=== PATIENT | female | born 1985 | race American Indian/Alaskan Native ===

== ENCOUNTER 2016-08-11 19:31 | Emergency (ER) | payer BC, MEDICAID, OTHER ==
--- NOTE | 2016-08-12 04:39 | OBHP ---
Datetime: 08/11/2016 20:23 IP Adm Impression: Term, intrauterine ; No Active Labor IP Admit Plan: Discharge home Admit Comment, IP Provider: 31 y.o. P3043, LMP unsure, JOY , EGA 36w 6d c/o worsening CTX: o nset several days ago; stronger 08/11/16 at 1600 hours, pain scale 8/10... "feels like contractions". ( +) AFM; denies LOF, VB. provider [facility]; denies issues P Ob: x 3: 2002, female, 7lb 12 oz, [facility] ([place]); 2007, male, 7lb 11oz, [facility]; 2012, male, 7lb [address], [facility] - no complications. VTOP x 3-4. all first trimester; no complicatoins. 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 Denies H/O STI or abnormal Pap PMH: denies PSH: D_C x 3-4 Allergies: penicillin - rash Soc Hx: denies tobacco, illicit drug or EtOH use. With FOB x 8 years. 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 Fam Hx: Mother alive 73 y.o - HTN, DM. Father alive 63 y.o - no med issues. No known fam h/o canc er. P.E.: as above. Mildy obese in NAD. Awake, alert, oriented to time, person and place. Pleasant and cooperative. FOB present Assessment: 31 yo P3043, 36w 6d - not in active labor. Category 1 tracing. Clinically stable. Plan: 1) Discharge home 2) Keep all/next scheduled appointments 3) Reviewed S/S labor Pelvic Type - PN: Adequate Extremities - PN: Normal Abdomen - PN: Normal Back - PN: Normal Breast - PN: Not Done Lungs - PN: Normal Heart - PN: Normal Thyroid - PN: Not Done Neurologic - PN: Normal HEENT - PN: Normal General - PN: Normal Presentation-Admit: Vertex FHR - Baseline A Provider: 145 Contraction Comments Provider: infrequent Comments, ACOG Physical Exam: Skin: warm, dry, intact Abdomen: Soft. Gravid. Fundal height 37cm All other systems reviewed and are negative Gestation - Est Wks by US: 36w 6d EGA AdmitDate IP: 36.6 IP Chief Complaint: Uterine contractions NICHD Variability Prov Fetus A: Moderate 6-25bpm NICHD Accel Fetus A IP Provider: 15X15 FHR Category Provider Fetus A: Category I NICHD Decel Fetus A IP Provider: None Dilatation, Provider: 1-2 Effacement, Provider: 30 Station, Provider: -3 Genitourinary Exam: Normal DTRs - PN: Not Done
== END 2016-08-11 20:20 | disposition home or self-care (01) ==
LOC: C.EROB 19:31
DX: O47.03 False labor before 37 completed weeks of gestation, third trimester (principal); Z3A.36 36 weeks gestation of pregnancy

== ENCOUNTER 2016-08-18 09:12 | Inpatient (IN) | payer BC, OTHER ==
[2016-08-18 09:27] VITALS: BMI 48.4
[2016-08-18] MEDS ORDERED: Lactated Ringer's 1,000 ML IV SCH (10:00)
[2016-08-18] MEDS ORDERED: Dextrose 5%/Lactated Ringer's 1,000 ML IV SCH (10:00)
[2016-08-18 11:08] LABS: SQUAMOUS EPITHIAL 3 /hpf (0-5); URINE BACTERIA RARE (<OCC); URINE BILIRUBIN NEGATIVE (NEGATIVE); URINE BLOOD NEGATIVE (NEGATIVE); URINE CLARITY Clear (Clear); URINE COLOR Yellow (YELLOW); URINE GLUCOSE (UA) 2+ mg/dL (Normal); URINE LEUKOCYTE ESTERASE NEG Leu/uL (Negative); URINE NITRATE NEGATIVE (NEGATIVE); URINE PROTEIN NEGATIVE (NEGATIVE); URINE UROBILINOGEN NORMAL mg/dL (0.2-1.0)
[2016-08-18 11:11] LABS: BASO % 0.2 % (0.0-2.0); EOS # 0.1 K/uL (0.0-0.7); EOS % 0.7 % (0.0-4.0); HEMOGLOBIN 12.8 g/dL (11.0-16.0); LYMPH % 13.2 % (20.0-40.0); MEAN CELL VOLUME 90.7 fL (81.0-99.0); MEAN CORPUSCULAR HEMOGLOBIN 29.9 pg (27.0-31.0); MEAN CORPUSCULAR HGB CONC 32.9 g/dL (33.0-37.0); MEAN PLATELET VOLUME 7.8 fL (7.2-11.7); MONO # 0.7 K/uL (0.0-0.8); MONO % 8.6 % (0.0-10.0); NEUT # 6.1 K/uL (1.8-7.0); NEUT % 77.3 % (50.0-75.0); RBC 4.27 Mil/uL (3.80-5.20); RED CELL DISTRIBUTION WIDTH 13.7 % (11.5-14.5); WHITE BLOOD COUNT 7.9 K/uL (4.8-10.8)
[2016-08-18 11:19] LABS: ALBUMIN 2.9 g/dL (3.5-5.0)
[2016-08-18 11:21] LABS: GFR AFRICAN-AMERICAN > 60; GFR NON-AFRICAN AMERICAN > 60
[2016-08-18 11:22] LABS: ALB/GLOB RATIO 0.9 (1.0-2.1); ALT/SGPT 39 U/L (9-52); AST/SGOT 31 U/L (14-36); BLOOD UREA NITROGEN 4 mg/dL (7-17); CALCIUM 9.1 mg/dl (8.6-10.4)
[2016-08-18] MEDS ORDERED: Bupivacaine 0.125%/FentaNYL 200 ML EPI ONE (11:44)
[2016-08-18] MEDS ORDERED: Lidocaine 2% MPF (5 ml) Inj ONE (12:54)
[2016-08-18] MEDS ORDERED: Oxycodone/Acetaminophen 5/325 mg Tab PO PRN (14:23)
--- NOTE | 2016-08-18 14:38 | OBDS ---
DELIVERY PERSONNEL Delivery Doctor: Zak Marsh MD Scrub Nurse: Felicity Osorio OBT Gasket Former: Yuni Hansen RN Anesthesiologist: Zak Major MD MATERNAL INFORMATION Delivery Anesthesia: Epidural Medications in Delivery: pitocin Estimated Blood Loss (ml): 200 Maternal Complications: None RN Comments: to a live baby girl to mother's abdomen, 9:9, stable. Skin to skin initiated , encouraged. Provider Comments: Uncomplicated vaginal delivery, live female infant, RADHA position, tight nuchal co rd x 1, over intact perineum; Apgars 9/9; weight 7lb 6oz. Infant placed on mother's abdomen. Sponta neous delivery of placenta - grossly intact; 3 vessel cord. Cervix, vagina, perineum inspected - no lacerations. Infant and mother bonding; both in stable condition LABOR SUMMARY EDC: 09/02/2016 00:00 No. Babies in Womb: 1 Attempted: No Labor Anesthesia: Epidural LABOR INFORMATION Onset of Labor: 08/18/2016 05:00 Complete Dilatation: 08/18/2016 13:03 Cervical Ripening Agents: Cervidil Group B Beta Strep: Done, Result Unknown Antibiotics # of Doses: 0 Steroids Given: None Reason Steroids Not Administered: Not Applicable MEMBRANES Membranes Rupture Method: Spontaneous Rupture of Membranes: 08/18/2016 12:03 Length of Rupture (hrs): 1.07 Amniotic Fluid Color: Clear Amniotic Fluid Amount: Moderate Amniotic Fluid Odor: Normal STAGES OF LABOR Stage 1 hrs: 8 Stage 1 min: 3 Stage 2 hrs: 0 Stage 2 min: 4 Stage 3 hrs: 0 Stage 3 min: 6 Total Time in Labor hrs: 8 Total Time in Labor min: 13 VAGINAL DELIVERY Episiotomy: None Laceration Extension: N/A Laceration Type: None Laceration Repair: Not Applicable Laceration Repair Note: N/A Initial Vag Sponge Count: 10 Final Vag Sponge Count: 10 Initial Vag Sharps Count: 0 Final Vag Sharps Count: 0 Sponge Count Correct: Yes; Vaginal Sweep Performed Sharps Count Correct: Yes Count Comment: Correct BABY A INFORMATION Delivery Date/Time: 08/18/2016 13:07 Method of Delivery: Vaginal Born in Route : No : N/A Forceps: N/A Vacuum Extraction: N/A Shoulder Dystocia : No SHOULDER DYSTOCIA BABY A Infant Delivery Date/Time: 08/18/2016 13:07 PRESENTATION/POSITION BABY A Presentation: Cephalic Cephalic Presentation: Vertex Vertex Position: Left Occipital Anterior Breech Presentation: N/A PLACENTA INFORMATION BABY A Placenta Delivery Time : 08/18/2016 13:13 Placenta Method of Delivery: Spontaneous Placenta Status: Delivered SCORES BABY A Heart Rate 1 min: >100 bpm Resp Effort 1 min: Good Cry Reflex Irritability 1 min: Cough or Sneeze or Pulls Away Muscle Tone 1 min: Active Motion Color 1 min: Body [place], Extremities Blue SCORE 1 MIN: 9 Heart Rate 5 min: >100 bpm Resp Effort 5 min: Good Cry Reflex Irritability 5 min: Cough or Sneeze or Pulls Away Muscle Tone 5 min: Active Motion Color 5 min: Body [place], Extremities Blue SCORE 5 MIN: 9 INFANT INFORMATION BABY A Gestational Age at Delivery: 37.6 Gestational Status: Term Infant Outcome : Liveborn Infant Condition : Stable Infant Sex: Female IDENTIFICATION/MEDS BABY A ID Band Number: [id number] ID Band Location: Left Leg; Left Arm Sensor Applied: Yes Sensor Number: [id number] Sensor Location : Cord Clamp Vitamin K Given : Not Given Erythromycin Given: Not Given WEIGHT/LENGTH BABY A Infant Birthweight (gms): 3335 Infant Weight (lb): 7 Weight (oz): 6 Length Inches: 19.50 Length cms: 49.5 CORD INFORMATION BABY A No. Cord Vessels: 3 Nuchal Cord : Around Neck x1, Tight Nuchal Cord Other: n/a True Knot: 0 Cord Blood Taken: Yes Banking/Donate Info: n/a Infant Suction: Mouth; Nose ASSESSMENT BABY A Infant Complications: None Physical Findings at Delivery: Within Normal Limits Infant Respirations: Appears Normal Mechanic Driver/ALS Called : No Infant Care By: Krystin Transferred To: Remains with Mother
--- NOTE | 2016-08-18 15:34 | OBHP ---
Datetime: 08/18/2016 09:12 IP Adm Impression: Term, intrauterine ; Intact Membranes IP Chief Complaint Other: Back pain - intractable IP Adm Impression Other: Prolonged latent phase of labor IP Admit Plan: Admit to unit; Initiate labor protocol IP Admit Plan Other: Cervical ripening Admit Comment, IP Provider: 31 y.o. , LMP unsure, JOY 09/02/16, EGA 37w 6d, c/o stronger Ctx since 0530 hours, pain scale 8/10 to 9/10. Also, decreased movement since 08/17/16; still decre ased. Denies LOF, VB. care: [facility]; last visit 08/12/16. Issues: S/P ECHO - reason uncle ar - suboptimal visualization on anatomic survey at 19 weeks; CF carrier. ECHO 07/2016 - late; l imited; grossly normal. Abnormal GCT; normal 3hr GTT. P Ob: x 3: 2002, female, 7lb 12 oz, [facility] ([place]); 2007, male, 7lb 11oz, [facility]; 2012, male, 7lb 13 oz, [facility] - no complications. VTOP x 3-4 - all first trimester; no complications. 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 Denies H/O STI or abnormal Pap PMH: denies PSH: D_C x 3-4 Allergies: penicillin - rash Soc Hx: denies tobacco, illicit drug or EtOH use. With FOB x 8 years. 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 Fam Hx: Mother alive 73 y.o. - HTN, DM. Father alive 63 y.o. - no med issues. No known fam h/o ca ncer. P.E.: as above. Obese, in pain. Awake, alert, oriented to time, person and place. 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 Category 1 tracing. GBS (-). D/W patient cervical ripening and possible pitoci n. Also discussed epidural - hesitant at [facility]. Patient is clinically stable. Plan: 1) Admit 2) NPO 3) Admission labs 4) IVFs 5) Continuous EFM 6) Cervidil 7) Anticipate vaginal delivery Pelvic Type - PN: Adequate Extremities - PN: Normal Abdomen - PN: Normal Back - PN: Normal Breast - PN: Not Done Lungs - PN: Normal Heart - PN: Normal Thyroid - PN: Not Done Neurologic - PN: Normal HEENT - PN: Normal General - PN: Normal Weight - Estimated: 8lb Presentation-Admit: Vertex FHR - Baseline A Provider: 145 Contraction Comments Provider: irregular (Annotations: Data stored by CPN on behalf of user) Comments, ACOG Physical Exam: Skin: warm, dry, intact Abdomen: Obese. Gravid. Non tender in all quadrants All other systems reviewed and are negative. Gestation - Est Wks by US: 37w 6d IP Hx Assessment: The History has been Reviewed and is Current EGA AdmitDate IP: 37.6 Vital Signs Provider: Reviewed IP Indication for Induction: Not Applicable IP Chief Complaint: Decreased movement; Other NICHD Variability Prov Fetus A: Moderate 6-25bpm NICHD Accel Fetus A IP Provider: 15X15 FHR Category Provider Fetus A: Category I NICHD Decel Fetus A IP Provider: None Dilatation, Provider: 3-4 Effacement, Provider: 60 Station, Provider: -3 Genitourinary Exam: Normal DTRs - PN: Not Done
--- NOTE | 2016-08-18 15:40 | OBPN ---
Datetime: 08/18/2016 10:25 IP Procedures Other: Cervical placement IP Progress Plan: Continue present management; Cervical Ripening; Anesthesia consult; Anticipate Vag inal Delivery Membranes, Provider: Intact Contraction Comments Provider: irregular FHR - Baseline A Provider: 150 Gestation - Est Wks by US: 37w 6d IP Progress Note Comment: Patient reports continual back pain; not so much abdominal tightening, i.e ., contractions. Considering epidural V.E.: as above. Cervix mid - to anterior. Cervix placed in posterior vaginal vault Assessment: P3043, 37w 6d, cervical ripening. Category 1 tracing. clinically stable. Plan: 1) Anticipate vaginal delivery 2) possible epidural NICHD Accel Fetus A IP Provider: 15X15 FHR Category Provider Fetus A: Category I NICHD Variability Prov Fetus A: Moderate 6-25bpm Dilatation, Provider: 3-4 Effacement, Provider: 60 Station, Provider: -3 NICHD Decel Fetus A IP Provider: None Datetime: 08/18/2016 09:12 Weight - Estimated: 8lb Presentation-Admit: Vertex Vital Signs Provider: Reviewed
[2016-08-18 17:48] LABS: HEMOGLOBIN 12.3 g/dL (11.0-16.0); MEAN CELL VOLUME 91.2 fL (81.0-99.0); MEAN CORPUSCULAR HEMOGLOBIN 29.8 pg (27.0-31.0); MEAN CORPUSCULAR HGB CONC 32.7 g/dL (33.0-37.0); MEAN PLATELET VOLUME 7.8 fL (7.2-11.7); RBC 4.14 Mil/uL (3.80-5.20); RED CELL DISTRIBUTION WIDTH 13.5 % (11.5-14.5); WHITE BLOOD COUNT 16.8 K/uL (4.8-10.8)
[2016-08-18] MEDS ORDERED: Gentamicin 80 mg/2mL Inj. IVPB SCH (18:45)
[2016-08-18] MEDS ORDERED: Clindamycin 150 mg/mL Inj IVPB SCH (18:45)
--- NOTE | 2016-08-18 18:50 | OBPN ---
Datetime: 08/18/2016 17:00 IP Progress Note Comment: At approximately 1600hours, notified by R.N. - heavy vaginal bleeding patient received in LDR#2, awake, alert, oriented to time, person and place. Denies any abdominal pain Sterile gown and gloves donned. Straight catheterization performed: 200 mL concentrated, clear uri ne retrieved. Vagina re-inspected - no laceration (confirmed) - (+) large clot in vaginal vault. Bim anual examination performed with expression of approximately 500 mL blood clots. Uterus firm. 1,000 m icrograms cytotec placed per rectum. Assessment: 31 yo P4044, S/P vaginal delivery - acute post hemorrhage - uterine atony; resp onding to uterotonics. Vitals signs stable. Patient is clinically stable. Plan: 1) CBC now 2) Start IV antibiotics: gentamicin and clindamycin
[2016-08-18 20:28] VITALS: O2SAT 98
[2016-08-18] MEDS: Oxycodone/Acetaminophen 5/325 mg Tab PO PRN (23:41)
[2016-08-19 07:39] LABS: HEMOGLOBIN 11.5 g/dL (11.0-16.0); MEAN CELL VOLUME 89.8 fL (81.0-99.0); MEAN CORPUSCULAR HGB CONC 33.4 g/dL (33.0-37.0); MEAN PLATELET VOLUME 7.5 fL (7.2-11.7); RBC 3.84 Mil/uL (3.80-5.20); RED CELL DISTRIBUTION WIDTH 13.6 % (11.5-14.5); WHITE BLOOD COUNT 13.2 K/uL (4.8-10.8)
[2016-08-19] MEDS: Oxycodone/Acetaminophen 5/325 mg Tab PO PRN ×2 (08:49→16:54)
[2016-08-19] MEDS: Multiple Vitamins Tab PO SCH (10:26)
--- NOTE | 2016-08-19 13:53 | OBPPN ---
Datetime: 08/19/2016 08:23 PP Pain Prov: Within normal limits PP Nausea Prov: Denies PP Flatus Prov: Yes PP Heart Prov: Normal PP Lungs Prov: Normal PP Abdomen/Uterus Prov: Normal PP Lochia Prov: Normal PP Vulva/Perineum Prov: Normal PP CVA Tenderness Prov: Normal PP Extremities Prov: Normal PP C/S Incision Prov: Not Applicable PP Progress Prov: Not Applicable PP Impression Prov: Normal progression PP Plan Prov: Continue present management PP Progress Note Prov: S-patient denies any complaints.Tolerating regular diet.ambulating and voidin g with out difficulty.denies nausea, vomiting, headache, chest pain, shortness of breath, numbness or tingling in handsa nd feet O-VS Temp 101.7 8pm 08/18/2016 Abdomen soft and nontender Fundus firm and below umbilicus Extremities no calf tenderness A/P Patient s/p vaginal deliveru ppd 1.On antibiotics for fever -continue antibiotics till afebrile for 24 hoirs -routine pp care -follow up am [facility] Vital Signs Provider PP: Reviewed Vital Signs Provider Details PP: temp 101.7 at 8pm 08/18/2016
[2016-08-20] MEDS: Oxycodone/Acetaminophen 5/325 mg Tab PO PRN (00:33)
--- NOTE | 2016-08-20 07:46 | OBDCSUM ---
Datetime: 08/20/2016 07:44 Discharged to, Provider: Home Follow up at, Provider: 6weeks Discharge Diagnosis, Provider: Term Delivered Follow up in weeks, Provider: clinic Disch Activity Restrictions: No exercising; No lifting; No driving; Minimize walking; Minimize stair -climbing; No sexual activity; Nothing in vagina - [place], tampons, douche Discharge Comment, Provider: no sex motrin prn f/u in 6weeks Discharge Diagnosis Prov Other: s/p
--- NOTE | 2016-08-20 07:46 | OBPPN ---
Datetime: 08/20/2016 07:43 PP Pain Prov: Within normal limits PP Nausea Prov: Denies PP Flatus Prov: Yes PP Abdomen/Uterus Prov: Normal PP Lochia Prov: Normal PP Extremities Prov: Normal PP Comments Phys Exam Prov: fudus below umblicus ext no edema,no calf ten PP Impression Prov: Normal progression PP Plan Prov: Discharge PP Progress Note Prov: pt was seen at berd side, pain under control, no n/v, tolerating deit,voiding ,min lochia, flatus+ ppd#2 s/p dc home no sex motrin prn f/u in 6weeks Vital Signs Provider PP: Reviewed; Within Normal Limits
[2016-08-20] MEDS: Multiple Vitamins Tab PO SCH (09:22)
[2016-08-20 12:02] VITALS: BP 118/72; PULSE 82; TEMP 98
[2016-08-20 12:21] VITALS: RESP 20
== END 2016-08-20 19:05 | disposition home or self-care (01) | DRG 774 ==
LOC: C.EROB 09:12 → C.4D 09:29 → C.4M 17:30
PROVIDERS: ADMIT Obstetrics & Gynecology; ATTEND Obstetrics & Gynecology
PROC: 10E0XZZ Delivery of Products of Conception, External Approach (ICD-10-PCS; principal; 2016-08-18)
DX: O36.8130 Decreased fetal movements, third trimester, not applicable or unspecified (principal); O63.0 Prolonged first stage (of labor); O86.4 Pyrexia of unknown origin following delivery; O69.1XX0 Labor and delivery complicated by cord around neck, with compression, not applicable or unspecified; Z3A.37 37 weeks gestation of pregnancy; Z37.0 Single live birth

== ENCOUNTER 2017-05-19 08:59 | Emergency (ER) | payer BC, OTHER ==
[2017-05-19 09:00] VITALS: BMI 48.4
[2017-05-19 09:11] VITALS: BP 162/81; PULSE 85; RESP 16; TEMP 98.9; O2SAT 97
[2017-05-19] MEDS ORDERED: Tetracaine 0.5% Ophth (OR ONLY) ONE (09:15)
[2017-05-19] MEDS ORDERED: Polymyxin/Trimethoprim Ophth Soln OS STA (09:20)
--- NOTE | 2017-05-19 09:23 | C.PDOC ---
History Of Present Illness 32 y/o F p/w L eye redness, discharge, morning crustiness. Denies change in vision, patient states feels discomfort/irritation in eye. She notes that while she was driving, she felt something go into her eye but she states she didn't have any irritation until that night. Denies any current pain with eye movement. Denies photophobia. Time Seen by Provider: 05/19/17 09:18 Chief Complaint (Nursing): Eye Problem Past Medical History Vital Signs: Last Vital Signs Temp 98.9 F 05/19/17 09:08 Pulse 85 05/19/17 09:08 Resp 16 05/19/17 09:08 BP 162/81 H 05/19/17 09:08 Pulse Ox 97 05/19/17 09:08 - [facility] Procedures DELIVERY OF PRODUCTS OF CONCEPTION, EXTERNAL APPROACH (08/18/16) MANUAL ASSIST DELIV NEC (06/11/12) Family History: States: No Known Family Hx - Social History Hx Alcohol Use: No Hx Substance Use: No - Immunization History Hx Tetanus Toxoid Vaccination: No Hx Influenza Vaccination: No Hx Pneumococcal Vaccination: No Review Of Systems Except As Marked, All Systems Reviewed And Found Negative. Constitutional: Negative for: Fever Eyes: Negative for: Vision Change Physical Exam - Physical Exam Additional Physical Exam Comments: Gen: NAD Head: NC/AT Eyes: PERRLA. EOMI. Conjunctival injection. Clear, mucus discharge. No foreign body seen with eyelid eversion. Neuro: Alert. ED Course And Treatment O2 Sat by Pulse Oximetry: 97 Medical Decision Making Medical Decision Making: Symptoms and signs consistent with conjunctivitis. Will start eyedrops, f/u with Ophtho, return to ED for worsening pain or vision. Disposition - Disposition Referrals: Jay Mendez [Staff Provider] - Disposition: HOME/ ROUTINE Disposition Time: 09:24 Condition: STABLE Prescriptions: Polymyxin/Trimethoprim Sulfate [Polytrim Ophth Soln] 1 drop OU Q3H #1 bottle Instructions: Conjunctivitis ([place]) Forms: [facility] (Vietnamese), Work Excuse - Clinical Impression Clinical Impression: Conjunctivitis
== END 2017-05-19 09:46 | disposition home or self-care (01) ==
LOC: C.ER 08:59
DX: H10.9 Unspecified conjunctivitis (principal)

== ENCOUNTER 2017-05-30 09:18 | Emergency (ER) | payer BC, OTHER ==
[2017-05-30 09:18] VITALS: BMI 48.4
[2017-05-30 09:36] VITALS: O2SAT 99
[2017-05-30 11:04] VITALS: BP 124/76; PULSE 90; RESP 20; TEMP 97.6
--- NOTE | 2017-05-30 11:10 | C.PDOC ---
History Of Present Illness 32 y/o female presents to the ED complaining of allergic reaction and a cold sore for 2 days. States she initially noticed a blister at the left lower corner of her mouth. Patient used blistex and then noticed irritation to the entire bottom lip. Also states her eczema is flaring up. Denies any tongue swelling or difficulty breathing. Time Seen by Provider: 05/30/17 10:08 Chief Complaint (Nursing): Allergic Reaction History Per: Patient History/Exam Limitations: no limitations Onset/Duration Of Symptoms: Days Current Symptoms Are (Timing): Still Present Past Medical History Reviewed: Historical Data, Nursing Documentation, Vital Signs Vital Signs: Last Vital Signs Temp 97.6 F 05/30/17 11:04 Pulse 90 05/30/17 11:04 Resp 20 05/30/17 11:04 BP 124/76 05/30/17 11:04 Pulse Ox 99 05/30/17 11:10 - Medical History PMH: No Chronic Diseases Surgical History: No Surg Hx - [facility] Procedures DELIVERY OF PRODUCTS OF CONCEPTION, EXTERNAL APPROACH (08/18/16) MANUAL ASSIST DELIV NEC (06/11/12) Family History: States: No Known Family Hx - Social History Hx Tobacco Use: No Hx Alcohol Use: No Hx Substance Use: No - Immunization History Hx Tetanus Toxoid Vaccination: No Hx Influenza Vaccination: No Hx Pneumococcal Vaccination: No Review Of Systems Except As Marked, All Systems Reviewed And Found Negative. Skin: Positive for: Rash Physical Exam - Physical Exam Appears: Non-toxic, No Acute Distress Skin: Warm, Dry, Rash (mild erythema to the lower lip) Head: Atraumatic, Normacephalic Eye(s): bilateral: Normal Inspection, PERRL, EOMI Oral Mucosa: Moist Lips: No Swelling (or signs of infection), Other (blister cold sore to corner of left lower lip) Neck: Normal ROM, Supple Chest: Symmetrical Respiratory: No Accessory Muscle Use ED Course And Treatment O2 Sat by Pulse Oximetry: 99 (RA) Pulse Ox Interpretation: Normal Medical Decision Making Medical Decision Making: Impression: Cold sore, Mild allergic reaction Patient is medically stable. Will discharge home with prescriptions for hydrocortisone cream, Claritin, and prednisone. Advised to follow up with PMD. Disposition Counseled Patient/Family Regarding: Diagnosis, Need For Followup, Rx Given - Disposition Disposition: HOME/ ROUTINE Disposition Time: 11:07 Condition: STABLE Additional Instructions: follow up with your doctor in 2 days call to make an appointment continue your home medications return to ER if symptoms worsens or progress Prescriptions: Hydrocortisone 1% Cream [Cortizone 1% Cream] 1 appl TP BID PRN #45 tube PRN Reason: Rash Loratadine [Claritin] 10 mg PO DAILY PRN #15 tab PRN Reason: Other predniSONE [predniSONE Tab] 50 mg PO DAILY #4 tab Instructions: Skin Rash (DC) Forms: General Discharge Instructions, [facility] (Maltese), Work Excuse - Clinical Impression Clinical Impression: Rash - Scribe Statement The provider has reviewed the documentation as recorded by the Scribe (Haylie Del Rosario) Provider Attestation: All medical record entries made by the Scribe were at my direction and personally dictated by me. I have reviewed the chart and agree that the record accurately reflects my personal performance of the history, physical exam, medical decision making, and the department course for this patient. I have also personally directed, reviewed, and agree with the discharge instructions and disposition.
== END 2017-05-30 11:14 | disposition home or self-care (01) ==
LOC: C.ER 09:18
DX: R21 Rash and other nonspecific skin eruption (principal)

== ENCOUNTER 2017-11-18 07:07 | Emergency (ER) | payer BC, OTHER ==
[2017-11-18 07:13] VITALS: BMI 41.6
[2017-11-18] MEDS ORDERED: Sodium Chloride 0.9% 1,000 ML IV ONE (07:32)
--- NOTE | 2017-11-18 07:32 | C.PDOC ---
History Of Present Illness 32 year old female presents to the emergency department with complaints of throat pain associated with fever, generalized body aches, and chills. Patient states that she believes she "has a throat abscess", stating that her throat pa in has worsened with difficulty swallowing. She reports a prior history of a throat abscess, with incision and drainage performed 10 years ago. She denies other associated symptoms, and denies taking medicine prior to arrival. "I THINK I HAVE A THROAT ABSCESS". INITIAL PAIN R THROAT, WORSENING NOW W DIFF SWALLOWING. +FEVER, MYALGIA, CHILLS. HO PRIOR THROAT ABSCESS I&D 10 YRS AGO. DENIES OTHER ASSOC SX. 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 NEG Time Seen by Provider: 11/18/17 07:20 Chief Complaint (Nursing): ENT Problem History Per: Patient History/Exam Limitations: no limitations Onset/Duration Of Symptoms: Hrs Current Symptoms Are (Timing): Worse Associated Symptoms: Fever, Chills, Sore Throat, Myalgias, Other (difficulty swallowing) Past Medical History Reviewed: Historical Data, Nursing Documentation, Vital Signs Vital Signs: Last Vital Signs Temp 102.1 F H 11/18/17 07:13 Pulse 133 H 11/18/17 07:13 Resp 20 11/18/17 07:13 BP 141/86 11/18/17 07:13 Pulse Ox 95 11/18/17 07:13 - Medical History PMH: No Chronic Diseases Surgical History: No Surg Hx - [facility] Procedures DELIVERY OF PRODUCTS OF CONCEPTION, EXTERNAL APPROACH (08/18/16) MANUAL ASSIST DELIV NEC (06/11/12) Family History: States: No Known Family Hx - Social History Hx Tobacco Use: No Hx Alcohol Use: No Hx Substance Use: No - Immunization History Hx Tetanus Toxoid Vaccination: No Hx Influenza Vaccination: No Hx Pneumococcal Vaccination: No Review Of Systems Except As Marked, All Systems Reviewed And Found Negative. Constitutional: Positive for: Fever, Chills, Other (myalgias) ENT: Positive for: Throat Pain, Other (difficulty swallowing) Physical Exam - Physical Exam Appears: Non-toxic, In Acute Distress (moderate) Skin: Warm, Dry Head: Atraumatic, Normacephalic Eye(s): bilateral: Normal Inspection Ear(s): Bilateral: Normal Nose: Normal Oral Mucosa: Moist Throat: Exudate, No Drooling, Other (r > l pharyngeal swelling, uvula midline, no drooling or stridor.) Neck: Normal, Trachea Midline, Supple Chest: Symmetrical, No Deformity Cardiovascular: Rhythm Regular, No Murmur Respiratory: Normal Breath Sounds, No Rales, No Rhonchi, No Wheezing Gastrointestinal/Abdominal: Soft, No Tenderness, No Guarding, No Rebound Extremity: Normal ROM Neurological/Psych: Oriented x3, Normal Speech, Normal Cognition ED Course And Treatment - Laboratory Results Result Diagrams: 11/18/17 08:24 11/18/17 08:24 O2 Sat by Pulse Oximetry: 95 (RA) Pulse Ox Interpretation: Normal Progress Note: Plan: VBG. CT Neck Soft Tissue. BMP. CBC. Cleocin 300mg. Decadron 10mg IVP. Morphine 2mg IVP. NaCl IV Fluids. Toradol 30mg IVP. Tylenol 975mg PO. POC Urine Progress - Re-Evaluation Re-evaluation Note: 11/18/17 11:[address] REPORT REVIEWED. DC ABX, FU PMD - Data Reviewed Data Reviewed: Lab, Diagnostic imaging, Old records Disposition Counseled Patient/Family Regarding: Studies Performed, Diagnosis, Need For Followup, Rx Given - Disposition Referrals: [facility] [Outside] [facility] [Outside] Disposition: HOME/ ROUTINE Disposition Time: 11:16 Condition: IMPROVED Prescriptions: Clindamycin [Cleocin] 300 mg PO TID #30 cap Ibuprofen [Motrin] 600 mg PO Q6 #30 tab Tramadol HCl [Ultram] 50 mg PO QID #20 tab Instructions: Sore Throat, Adult (DC) Forms: [facility] [facility] (Georgian), Work Excuse - Clinical Impression Clinical Impression: Pharyngitis - Scribe Statement The provider has reviewed the documentation as recorded by the Scribe (Ger Haskins) Provider Attestation: All medical record entries made by the Scribe were at my direction and personally dictated by me. I have reviewed the chart and agree that the record accurately reflects my personal performance of the history, physical exam, medical decision making, and the department course for this patient. I have also personally directed, reviewed, and agree with the discharge instructions and disposition.
[2017-11-18] MEDS ORDERED: Clindamycin 300 MG in Sodium Chloride 0.9% 50 ML IV STA (07:33)
[2017-11-18 08:23] LABS: VENOUS BLOOD GAS BASE EXCESS -3.2 mmol/L (0.0-2.0); VENOUS BLOOD GAS PCO2 28 mmHg (40-60); VENOUS BLOOD GAS PO2 63 mm/Hg (30-55); VENOUS BLOOD PH 7.45 (7.32-7.43)
[2017-11-18] MEDS ORDERED: Sodium Chloride 0.9% 1,000 ML ONE (08:26)
[2017-11-18 08:28] LABS: BASO # 0.1 K/uL (0.0-0.2); BASO % 0.3 % (0.0-2.0); HEMOGLOBIN 13.7 g/dL (11.0-16.0); LYMPH # 1.2 K/uL (1.0-4.3); LYMPH % 6.9 % (20.0-40.0); MEAN CELL VOLUME 91.2 fL (81.0-99.0); MEAN CORPUSCULAR HEMOGLOBIN 30.7 pg (27.0-31.0); MEAN CORPUSCULAR HGB CONC 33.7 g/dL (33.0-37.0); MEAN PLATELET VOLUME 6.5 fL (7.2-11.7); MONO # 2.1 K/uL (0.0-0.8); MONO % 11.8 % (0.0-10.0); NEUT # 14.6 K/uL (1.8-7.0); PLATELET COUNT 314 K/uL (130-400); RBC 4.47 Mil/uL (3.80-5.20); RED CELL DISTRIBUTION WIDTH 13.9 % (11.5-14.5); WHITE BLOOD COUNT 18.1 K/uL (4.8-10.8)
[2017-11-18 08:45] LABS: BLOOD UREA NITROGEN 7 mg/dL (7-17); CALCIUM 9.3 mg/dl (8.6-10.4); GFR NON-AFRICAN AMERICAN > 60
[2017-11-18] MEDS ORDERED: Iodixanol 320 MG/ML 100 ML BOTTLE IV ONE (09:05)
[2017-11-18 09:38] LABS: BANDS 3 % (0-2); BASOPHIL 1 % (0-2); EOSINOPHIL 1 % (0-4); LYMPHOCYTE 8 % (20-40); MONOCYTE 6 % (0-10); NEUTROPHIL 81 % (50-75); TOTAL CELLS COUNTED 100
[2017-11-18 09:39] LABS: LARGE PLATELETS PRESENT; PLATELET ESTIMATE NORMAL (NORMAL)
[2017-11-18 11:39] VITALS: BP 122/68; PULSE 91; RESP 18; TEMP 98.6; O2SAT 99
--- NOTE | 2017-11-18 17:09 | CT ---
Date of service: 11/18/2017 PROCEDURE: CT NECK WITH CONTRAST HISTORY: R THROAT SWELL RO ABSCESS COMPARISON: None available. TECHNIQUE: CT of the neck with intravenous contrast. Coronal and sagittal reformats generated. Intravenous contrast dose: 100 mL of Visipaque 320 intravenously. Radiation dose: DLP 584.6 mGy-cm This CT exam was performed using one or more of the following dose reduction techniques: Automated exposure control, adjustment of the mA and/or kV according to patient size, and/or use of iterative reconstruction technique. FINDINGS: NASOPHARYNX: There is heterogeneous diffuse swelling of nasopharynx slightly more prominent on the right and associated with narrowing of posterior nasal of late. SUPRAHYOID NECK: Diffuse mucosal and soft tissue swelling in the suprahyoid neck including oropharynx, oral cavity, parapharyngeal space and retropharyngeal space. There is enlargement of tonsils noted. No evidence of discrete abscess formation INFRAHYOID NECK: Unremarkable larynx, hypopharynx, and supraglottic space. Vocal cords intact. MASS: None. GLANDS: Parotid and submandibular glands unremarkable. Normal size thyroid gland, without nodule. LYMPH NODES: Mildly enlarged level 2 lymph nodes are noted. CERVICAL SPINE: No fracture or focal lesion. VASCULAR STRUCTURES: Unremarkable. OTHER FINDINGS: None. IMPRESSION: Diffuse soft tissue swelling in the nasal and oropharynx and moderate enlargement of the tonsils noted. No evidence of discrete abscess formation. Mildly enlarged upper neck lymph nodes likely reactive lymphadenopathy.
== END 2017-11-18 11:40 | disposition home or self-care (01) ==
LOC: C.ER 07:07
DX: J02.9 Acute pharyngitis, unspecified (principal)
CPT/HCPCS: 70491; 80048; 82803; 85025; 96365; 96375; 99285; J1100; J1885; J2270; J7030; Q9967

== ENCOUNTER 2017-12-21 11:58 | Emergency (ER) | payer BC ==
[2017-12-21 11:59] VITALS: BMI 41.6
[2017-12-21 13:29] LABS: BASO # 0.1 K/uL (0.0-0.2); EOS % 0.6 % (0.0-4.0); HEMOGLOBIN 14.5 g/dL (11.0-16.0); LYMPH # 3.5 K/uL (1.0-4.3); LYMPH % 57.4 % (20.0-40.0); MEAN CORPUSCULAR HEMOGLOBIN 30.6 pg (27.0-31.0); MEAN CORPUSCULAR HGB CONC 34.3 g/dL (33.0-37.0); MEAN PLATELET VOLUME 6.6 fL (7.2-11.7); MONO # 0.5 K/uL (0.0-0.8); MONO % 8.1 % (0.0-10.0); NEUT % 32.9 % (50.0-75.0); NRBC % 0.2 % (0.0-2.0); RBC 4.73 Mil/uL (3.80-5.20)
[2017-12-21 13:31] LABS: MEAN CELL VOLUME 89.1 fL (81.0-99.0)
--- NOTE | 2017-12-21 13:31 | C.PDOC ---
History Of Present Illness 32 y/o female presents to ED with c/o left sided chest pain, body aches and headache for 11 days worse this morning prompting visit to ED. Patient reports headache more intense than usual headaches and has taken Motrin, Excedrin with no improvement. Patient denies fever, chills, nausea, vomiting, sob, cough, leg swelling, vision changes or any other complaints at this time. Time Seen by Provider: 12/21/17 13:03 Chief Complaint (Nursing): Chest Pain History Per: Patient History/Exam Limitations: no limitations Onset/Duration Of Symptoms: Days Current Symptoms Are (Timing): Still Present Past Medical History Reviewed: Historical Data, Nursing Documentation, Vital Signs Vital Signs: Last Vital Signs Temp 99.9 F H 12/21/17 12:10 Pulse 106 H 12/21/17 12:10 Resp 20 12/21/17 12:10 BP 133/86 12/21/17 12:10 Pulse Ox 98 12/21/17 12:10 - Medical History PMH: No Chronic Diseases Surgical History: No Surg Hx - [facility] Procedures DELIVERY OF PRODUCTS OF CONCEPTION, EXTERNAL APPROACH (08/18/16) MANUAL ASSIST DELIV NEC (06/11/12) Family History: States: No Known Family Hx - Social History Hx Tobacco Use: No Hx Alcohol Use: Yes Hx Substance Use: No - Immunization History Hx Tetanus Toxoid Vaccination: No Hx Influenza Vaccination: No Hx Pneumococcal Vaccination: No Review Of Systems Constitutional: Positive for: Other (body aches). Negative for: Fever, Chills Cardiovascular: Positive for: Chest Pain Respiratory: Negative for: Cough, Shortness of Breath Gastrointestinal: Negative for: Nausea, Vomiting Skin: Negative for: Rash Neurological: Positive for: Headache. Negative for: Weakness, Numbness Physical Exam - Physical Exam Appears: Non-toxic, No Acute Distress Skin: Warm, Dry, No Rash Head: Atraumatic, Normacephalic Eye(s): bilateral: Normal Inspection Oral Mucosa: Moist Neck: Normal ROM, Supple Cardiovascular: Rhythm Regular Respiratory: Normal Breath Sounds, No Rales, No Rhonchi, No Wheezing Gastrointestinal/Abdominal: Soft, No Tenderness, No Guarding, No Rebound Extremity: Normal ROM, No Pedal Edema, Capillary Refill (<2 seconds) Neurological/Psych: Oriented x3, Normal Speech, Normal Cognition ED Course And Treatment - Laboratory Results Result Diagrams: 12/21/17 13:13 12/21/17 13:13 ECG: Interpreted By Me ECG Rhythm: Sinus Tachycardia Rate From EC O2 Sat by Pulse Oximetry: 98 (RA) Pulse Ox Interpretation: Normal - Radiology CXR: Interpreted by Me CXR Interpretation: Yes: No Acute Disease - CT Scan/US ct scan head Other Rad Studies (CT/US): Read By Radiologist, Radiology Report Reviewed CT/US Interpretation: IMPRESSION: No acute intracranial pathology identified. Ct angio chest Other Rad Studies (CT/US): Read By Radiologist, Radiology Report Reviewed CT/US Interpretation: Findings: Visualized portions of the inferior thyroid gland appear unremarkable. The mediastinal and hilar vascular structures appear within normal limits. The heart appears within normal limits of size. No atherosclerotic calcification of the aorta present. No large central or segmental pulmonary embolus evident. No focal consolidation. No pleural effusion. No pneumothorax. No suspicious pulmonary nodules measuring greater than 5 mm. Limited visualized portions of the upper abdomen appear grossly unremarkable. No acute osseous abnormality is detected. Impression: No large central or segmental pulmonary embolus identified. Progress - Re-Evaluation Re-evaluation Note: 12/21/17 17:07 FEELS BETTER, NEURO INTACT CP RESOLVED. VSS. PENDING CT REPORTS. - Data Reviewed Data Reviewed: Lab, Diagnostic imaging, EKG Disposition Counseled Patient/Family Regarding: Studies Performed, Diagnosis, Need For Followup, Rx Given - Disposition Referrals: your,pmd [Other] Disposition: HOME/ ROUTINE Disposition Time: 17:40 Condition: IMPROVED Prescriptions: Ibuprofen [Motrin] 600 mg PO Q6 #30 tab Metoclopramide [Reglan] 1 tab PO TID PRN #25 tab PRN Reason: Nausea/Vomiting Instructions: Chest Pain (DC), Headache, Adult (DC), Viral Syndrome (DC) Forms: [facility] (Welsh), Work Excuse - Clinical Impression Clinical Impression: Chest pain, Viral syndrome, Headache - Scribe Statement The provider has reviewed the documentation as recorded by the Elma Velazquez All medical record entries made by the Omkaribmark were at my direction and personally dictated by me. I have reviewed the chart and agree that the record accurately reflects my personal performance of the history, physical exam, medical decision making, and the department course for this patient. I have also personally directed, reviewed, and agree with the discharge instructions and disposition.
[2017-12-21] MEDS ORDERED: Sodium Chloride 0.9% 1,000 ML IV STA (13:32)
[2017-12-21] MEDS ORDERED: Magnesium Sulfate 1 gm in D5W 1 GM/100 ML BAG IVPB STA (13:32)
[2017-12-21 13:52] LABS: ALB/GLOB RATIO 1.1 (1.0-2.1); ALBUMIN 3.8 g/dL (3.5-5.0); ALT/SGPT 45 U/L (9-52); AST/SGOT 52 U/L (14-36); BLOOD UREA NITROGEN 6 mg/dL (7-17); CALCIUM 9.1 mg/dl (8.6-10.4); GFR NON-AFRICAN AMERICAN > 60
[2017-12-21] MEDS ORDERED: Sodium Chloride 0.9% 1,000 ML ONE (13:53)
[2017-12-21 14:46] LABS: SQUAMOUS EPITHIAL 2 /hpf (0-5); URINE BILIRUBIN NEGATIVE (NEGATIVE); URINE BLOOD NEGATIVE (NEGATIVE); URINE CLARITY Clear (Clear); URINE COLOR Yellow (YELLOW); URINE GLUCOSE (UA) NORMAL (Normal); URINE LEUKOCYTE ESTERASE NEG Leu/uL (Negative); URINE PROTEIN NEGATIVE (NEGATIVE)
[2017-12-21] MEDS ORDERED: Magnesium Sulfate 1 gm in D5W 1 GM/100 ML BAG IVPB ONE (15:00)
--- NOTE | 2017-12-21 15:03 | RAD ---
HISTORY: CHEST PAIN COMPARISON: No prior. TECHNIQUE: Chest PA and lateral FINDINGS: LUNGS: No focal consolidation. Please note that chest x-ray has limited sensitivity for the detection of pulmonary masses. PLEURA: No significant pleural effusion identified. No definite pneumothorax . CARDIOVASCULAR: Heart size appears within normal limits. No atherosclerotic calcification present. OSSEOUS STRUCTURES: No acute osseous abnormality identified. VISUALIZED UPPER ABDOMEN: Unremarkable. OTHER FINDINGS: None. IMPRESSION: No focal consolidation.
[2017-12-21] MEDS ORDERED: Iodixanol 320 MG/ML 100 ML BOTTLE IV ONE (16:14)
--- NOTE | 2017-12-21 17:04 | CT ---
Date of service: 12/21/2017 PROCEDURE: CT HEAD WITHOUT CONTRAST. HISTORY: HEADACHE COMPARISON: None available. TECHNIQUE: Axial computed tomography images were obtained through the head/brain without intravenous contrast. Radiation dose: Total exam DLP = 1068.48 mGy-cm. This CT exam was performed using one or more of the following dose reduction techniques: Automated exposure control, adjustment of the mA and/or kV according to patient size, and/or use of iterative reconstruction technique. FINDINGS: HEMORRHAGE: No intracranial hemorrhage. BRAIN: No mass effect or edema. Benavides-white matter differentiation appears intact. Please note that MRI with diffusion imaging is more sensitive in the detection of acute ischemic event. VENTRICLES: No hydrocephalus. CALVARIUM: Unremarkable. PARANASAL SINUSES: Unremarkable as visualized. No significant inflammatory changes. MASTOID AIR CELLS: Unremarkable as visualized. No inflammatory changes. OTHER FINDINGS: None. IMPRESSION: No acute intracranial pathology identified.
--- NOTE | 2017-12-21 17:13 | CT ---
Date of service: 12/21/2017 CTA chest PE protocol Indication: SOB r/o PE Technique: Contiguous axial images were obtained through the chest with intravenous contrast enhancement. Sagittal and coronal reconstructions were generated and reviewed. This CT exam was performed using 1 or more of the following dose reduction techniques: Automated exposure control, adjustment of the MAA and/or kV according to patient size, and/or use of iterative reconstruction technique. IV contrast: 100 cc Visipaque 320 IV Radiation dose (DLP): 535.94 MGy-cm. Comparison: Chest x-ray performed 12/21/17 Findings: Visualized portions of the inferior thyroid gland appear unremarkable. The mediastinal and hilar vascular structures appear within normal limits. The heart appears within normal limits of size. No atherosclerotic calcification of the aorta present. No large central or segmental pulmonary embolus evident. No focal consolidation. No pleural effusion. No pneumothorax. No suspicious pulmonary nodules measuring greater than 5 mm. Limited visualized portions of the upper abdomen appear grossly unremarkable. No acute osseous abnormality is detected. Impression: No large central or segmental pulmonary embolus identified.
[2017-12-21 17:58] VITALS: BP 135/86; PULSE 69; RESP 20; TEMP 97.5
[2017-12-21 18:07] VITALS: O2SAT 98
--- NOTE | 2017-12-25 12:30 | CARD ---
APPROVED REPORT Date of service: 12/21/2017 EKG Measurement Heart [id number] <Conclusion> Sinus tachycardia Cannot rule out Anterior infarct, age undetermined Abnormal ECG
== END 2017-12-21 18:05 | disposition home or self-care (01) ==
LOC: C.ER 11:58
DX: R07.9 Chest pain, unspecified (principal); B34.9 Viral infection, unspecified; R51 Headache
CPT/HCPCS: 70450; 71046; 71275; 80053; 81001; 84484; 85025; 85378; 87804; 93005; 96361; 96365; 96375; 99285; J1885; J2765; J3475; J7030; Q9967